=== PATIENT | female | born 1975 | race Caucasian/White ===

== ENCOUNTER → 2024-03-13 08:02 | Outpatient (REF) | payer BC, SELFPAY | LOC: WDC 08:02 | PROVIDERS: ATTENDING PHYSICIAN Nurse Practitioner Women's Health; FAMILY PHYSICIAN Nurse Practitioner Family | DX: Z12.31 Encounter for screening mammogram for malignant neoplasm of breast (principal) | CPT/HCPCS: 77063; 77067 ==

== ENCOUNTER → 2024-07-27 06:30 | Day surgery (SDC) | payer BC, SELFPAY | LOC: GI 06:30 | PROVIDERS: ATTENDING PHYSICIAN Internal Medicine Gastroenterology | DX: Z12.11 Encounter for screening for malignant neoplasm of colon (principal); K64.8 Other hemorrhoids; K57.30 Diverticulosis of large intestine without perforation or abscess without bleeding; Z86.010 Personal history of colon polyps; Z83.719 Family history of colon polyps, unspecified; D12.3 Benign neoplasm of transverse colon | CPT/HCPCS: 45385; 88305 ==

== ENCOUNTER → 2025-04-20 18:26 | Outpatient (REF) | payer BC, SELFPAY | LOC: WDC 18:26 | PROVIDERS: ATTENDING PHYSICIAN Nurse Practitioner Family | DX: Z12.31 Encounter for screening mammogram for malignant neoplasm of breast (principal) | CPT/HCPCS: 77063; 77067 ==

== ENCOUNTER → 2025-07-26 13:27 | Outpatient (REF) | payer BC, SELFPAY | LOC: HWRAD 13:27 | PROVIDERS: ATTENDING PHYSICIAN Nurse Practitioner Women's Health; FAMILY PHYSICIAN Nurse Practitioner Family | DX: Z15.09 Genetic susceptibility to other malignant neoplasm (principal); Z80.41 Family history of malignant neoplasm of ovary | CPT/HCPCS: 76830; 76856 ==

== ENCOUNTER → 2025-08-24 07:33 | Outpatient (REF) | payer BC, SELFPAY | LOC: MRI 07:33 | PROVIDERS: FAMILY PHYSICIAN Nurse Practitioner Family | DX: N83.299 Other ovarian cyst, unspecified side (principal) | CPT/HCPCS: 72197; A9575 ==